=== PATIENT | male | born 1950 | race Caucasian/White ===

== ENCOUNTER → 2020-08-05 | Outpatient (CLI) | payer MEDICARE ==
[~2020-08-05] MED LIST: CARV6.25 PO; SIMV40TA59 PO; TYL3 PO; WARF7.5T49 PO
== END | disposition home or self-care (01) ==
LOC: SHCH 08:15
PROVIDERS: ATTEND Internal Medicine Cardiovascular Disease
DX: I25.119 Atherosclerotic heart disease of native coronary artery with unspecified angina pectoris (principal); R06.00 Dyspnea, unspecified
CPT/HCPCS: 93306; 93356

== ENCOUNTER → 2020-08-06 | Outpatient (CLI) | payer MEDICARE ==
[~2020-08-06] MED LIST changes: +REGADENOSON 0.4 MG/5 ML PF SYG IVP SCH
== END | disposition home or self-care (01) ==
LOC: SHCH 07:58
PROVIDERS: ATTEND Internal Medicine Cardiovascular Disease
DX: I25.10 Atherosclerotic heart disease of native coronary artery without angina pectoris (principal); I25.5 Ischemic cardiomyopathy
CPT/HCPCS: 78452; 93017; 96374; A9500 ×2; J2785

== ENCOUNTER 2020-09-10 05:48 | Day surgery (SDC) | payer MEDICARE ==
[2020-09-08 09:01] LABS: EOSINOPHILS % (AUTO) 3.5 % (0.0-8.0); HEMATOCRIT 46.6 % (42-54); LYMPHOCYTES % (AUTO) 15.6 % (21.0-51.0); MEAN CORPUSCULAR HEMOGLOBIN 28.4 pg (27.0-33.0); MEAN CORPUSCULAR HGB CONC 32.6 g/dL (32.0-36.0); MEAN CORPUSCULAR VOLUME 87.1 fL (79-99); MONOCYTES % (AUTO) 10.7 % (3.0-13.0); NEUTROPHILS % (AUTO) 68.9 % (40.0-77.0); PLATELET COUNT (AUTO) 206 K/uL (130-400); RED BLOOD CELL COUNT(AUTO) 5.35 MIL/uL (4.50-6.20); RED CELL DISTRIBUTION WIDTH 18.2 % (11.0-15.5); WHITE BLOOD COUNT (AUTO) 7.8 K/uL (4.8-10.8)
[2020-09-08 09:18] LABS: POTASSIUM 4.6 mmol/L (3.5-5.1)
[2020-09-08 09:19] LABS: APPEARANCE,URINE Clear (CLEAR); BILIRUBIN,URINE Negative (NEGATIVE); GLUCOSE, URINE (UA) Negative (NEGATIVE); KETONES,URINE Negative (NEGATIVE); LEUKOCYTE ESTERASE ,URINE Negative (NEGATIVE); NITRATE,URINE Negative (NEGATIVE); OCCULT BLOOD,URINE Negative (NEGATIVE); PROTEIN,URINE Negative (NEGATIVE)
[2020-09-08 09:20] LABS: INR 1.19 (0.85-1.15); PARTIAL THROMBOPLASTIN TIME 29.1 SEC (26.3-35.5); PROTHROMBIN TIME 12.8 SEC (9.6-11.6)
[2020-09-08 09:20] LABS: COLOR,URINE YELLOW (YELLOW)
[2020-09-08 09:26] LABS: CREATININE 1.3 mg/dL (0.5-1.5)
[2020-09-08 09:42] LABS: PLATELET MORPHOLOGY GIANT PLTS PRESENT
[2020-09-09 09:32] VITALS: BP 136/76
--- NOTE | 2020-09-09 10:22 | NUR ---
LABS REPORTED BUN/CRE/PT/INR TO ABDULKADIR MARCUS. ORDERS RECEIVED TO UNFUSE NS AT 50ML/HR ON ARRIVAL DAY OF SURGERY.
[~2020-09-10] VITALS: Ht 167.6 cm; Wt 103.8 kg
[2020-09-10] VITALS (20 sets, daily range): BP systolic 108–133; BP diastolic 48–71
[~2020-09-10 05:48] MED LIST changes: +ENOX100D4 SQ; -REGADENOSON 0.4 MG/5 ML PF SYG IVP SCH; -TYL3 PO; +WARF-57 PO; -WARF7.5T49 PO
[2020-09-10] MEDS ORDERED: SODIUM CHLORIDE 0.9% 1000ML 1,000 ML IV SCH ×2 (06:00→08:15)
[2020-09-10] MEDS ORDERED: LIDOCAINE HCL 2% 20ML ONE (07:07)
[2020-09-10] MEDS ORDERED: IOHEXOL 350 MG/ML 100ML INFUS..BTL IV ONE (07:07)
[2020-09-10] MEDS ORDERED: HEPARIN SODIUM 1000UNIT/ML 10ML VIAL ONE (07:07)
[2020-09-10] MEDS ORDERED: IOHEXOL-350 50ML VIAL IV ONE ×2 (07:07→07:41)
--- NOTE | 2020-09-10 08:56 | NUR ---
PT STABLE- HAS 6FR SHEATH TO RT FEMORAL ARTERY IN PLACE THAT IS PENDING REMOVAL MANUALLY. NO CHEST PAIN OR SOB. DR GONZALEZ SPOKE TO PT AND POST PROCEDURE. WILL NEED LIFE VEST PRIOR TO DC HOME. PHILOSOPHY FACULTY BISHNU FIELDS AND IS CURRENTLY WORKING ON PROCESS.
[2020-09-10] MEDS ORDERED: ATROPINE SULFATE 0.1 MG/ML 10 ML SYG IVP ONE (09:00)
--- NOTE | 2020-09-10 13:26 | NUR ---
PRINTED AND VERBAL DISCHARGE INSTRUCTIONS GIVEN TO PT AND HIS . BOTH VERBALIZE UNDERSTANDING. PT ENDORSED TO MAGDALENO KELLER
--- NOTE | 2020-09-10 13:57 | NUR ---
SPOKE TO DIRECTOR OF [employer]UM[employer] RELATIONS BISHNU KELLER- LIFE VEST STILL PENDING INSURANCE APPROVAL. I HAD CALLED SELWYN [place] AND LET HIM KNOW ABOUT PENDING AUTHORIZATION- HE GAVE ORDER TO DC HOME TODAY IF UNABLE TO OBTAIN LIFE VEST AND HE WOULD FOLLOW UP WITH HIM AT THE OFFICE NEXT WEEK. THERE IS A POSSIBILITY THAT PT COULD RECEIVE LIFE VEST AT HOME PER DIRECTOR OF ALUMNI RELATIONS
--- NOTE | 2020-09-10 17:18 | NUR ---
DC PLAN VISITED WITH PATIENT. PATIENT LIVES WITH SPOUSE. RECEIVED ORDER FOR [facility] VEST. AMRIT SIGNED BY SPOUSE. PACKET SENT TO [facility] LET WILLIAM MERCADO KNOW. DELAY BY REQUEST FOR A MORE INFORMATION BY INSURANCE. WAS NOTIFIED BY THE DAY PATIENT NURSE THAT PATIENT WILL BE DISCHARGED HOME. LET JEANINE KNOW. SAID PATIENT HAS BEEN APPROVED FOR VEST WILL DELIVER VEST TO PATIENT HOME ONCE FIND A FITTER. CONFIRMED ADDRESS AND SPOUSE INFO. SAID SHOULD BE DELIVERED THIS EVENING. LET DAY PATIENT KNOW. SAID OKAY PATIENT ALREADY DISCHARGING HOME. Addendum: 09/10/20 at 1722 by BISHNU VILLANUEVA RN CM Amended: Links added.
== END 2020-09-10 15:45 | disposition home or self-care (01) ==
LOC: DAH 05:48
PROVIDERS: ATTEND Internal Medicine Cardiovascular Disease
DX: I25.119 Atherosclerotic heart disease of native coronary artery with unspecified angina pectoris (principal); Z20.828 Contact with and (suspected) exposure to other viral communicable diseases; I50.43 Acute on chronic combined systolic (congestive) and diastolic (congestive) heart failure; I25.5 Ischemic cardiomyopathy; I25.2 Old myocardial infarction; Z88.0 Allergy status to penicillin; Z79.899 Other long term (current) drug therapy; Z98.890 Other specified postprocedural states; Z79.01 Long term (current) use of anticoagulants; Z95.5 Presence of coronary angioplasty implant and graft
CPT/HCPCS: 36415; 71045; 80048; 81003; 85025; 85610; 85730; 93005; 93458; A4215; A4216; A4221; A4222; A4223 ×3; A4606; A4663; C1894; J1644 ×2; J3490; J7030; Q9965; Q9967 ×3; 96360; 96361; J0461

== ENCOUNTER 2020-12-01 07:48 | Day surgery (SDC) | payer MEDICARE ==
[2020-11-30 09:53] LABS: BASOPHILS % (AUTO) 0.7 % (0.0-5.0); EOSINOPHILS % (AUTO) 2.7 % (0.0-8.0); HEMATOCRIT 43.3 % (42-54); LYMPHOCYTES % (AUTO) 15.5 % (21.0-51.0); MEAN CORPUSCULAR HEMOGLOBIN 31.4 pg (27.0-33.0); MEAN CORPUSCULAR HGB CONC 34.2 g/dL (32.0-36.0); MEAN CORPUSCULAR VOLUME 91.9 fL (79-99); MONOCYTES % (AUTO) 10.4 % (3.0-13.0); NEUTROPHILS % (AUTO) 70.3 % (40.0-77.0); PLATELET COUNT (AUTO) 182 K/uL (130-400); RED BLOOD CELL COUNT(AUTO) 4.71 MIL/uL (4.50-6.20); RED CELL DISTRIBUTION WIDTH 13.9 % (11.0-15.5); WHITE BLOOD COUNT (AUTO) 8.4 K/uL (4.8-10.8)
[2020-11-30 10:01] LABS: CREATININE 1.2 mg/dL (0.5-1.5); POTASSIUM 4.8 mmol/L (3.5-5.1)
[2020-11-30 10:04] LABS: INR 1.89 (0.85-1.15); PROTHROMBIN TIME 19.4 SEC (9.6-11.6)
[2020-11-30 10:05] LABS: PARTIAL THROMBOPLASTIN TIME 33.6 SEC (26.3-35.5)
[2020-11-30 14:35] VITALS: BP 115/71
[2020-12-01] VITALS (12 sets, daily range): BP systolic 102–125; BP diastolic 55–71
[~2020-12-01] VITALS: Ht 170.2 cm; Wt 105.0 kg
[~2020-12-01 07:48] MED LIST changes: -ENOX100D4 SQ; +FURO20TA4 PO; +LISI2.5T2 PO
[2020-12-01] MEDS ORDERED: SODIUM CHLORIDE 0.9% 1000ML 1,000 ML IV ONE (08:00)
[2020-12-01] MEDS ORDERED: IODIXANOL 320 MG/ML 100 ML VIAL ONE (10:24)
[2020-12-01] MEDS ORDERED: MEPERIDINE-PF 50 MG/ML SYG ONE (10:24)
[2020-12-01] MEDS ORDERED: CEFAZOLIN SODIUM 1 GM VIAL ONE (10:24)
[2020-12-01] MEDS ORDERED: LIDOCAINE HCL 1% MDV 50ML VIAL ONE (10:24)
[2020-12-01] MEDS ORDERED: MIDAZOLAM HCL 1 MG/ML 2ML VIAL ONE ×3 (10:24→12:04)
[2020-12-01] MEDS ORDERED: BUPIVACAINE/PF 0.25% 30ML VIAL IJ ONE (10:24)
[2020-12-01] MEDS ORDERED: VANCOMYCIN 1GM+NS 250ML 500 ML IV ONE (10:25)
[2020-12-01] MEDS ORDERED: MEPERIDINE-PF 25 MG/ML SYG ONE ×2 (11:29→12:04)
[2020-12-01] MEDS ORDERED: ACETAMINOPHEN-CODEINE 300/30MG TAB PO PRN (13:15)
[2020-12-01] MEDS ORDERED: TRAM50TA4 PO (13:16)
== END 2020-12-01 17:45 | disposition home or self-care (01) ==
LOC: DAH 07:48
PROVIDERS: ATTEND Internal Medicine Cardiovascular Disease
DX: I25.5 Ischemic cardiomyopathy (principal); I50.42 Chronic combined systolic (congestive) and diastolic (congestive) heart failure; I25.10 Atherosclerotic heart disease of native coronary artery without angina pectoris; I45.10 Unspecified right bundle-branch block; Z88.0 Allergy status to penicillin; Z95.5 Presence of coronary angioplasty implant and graft; Z79.899 Other long term (current) drug therapy; Z80.9 Family history of malignant neoplasm, unspecified; Z98.890 Other specified postprocedural states; Z79.01 Long term (current) use of anticoagulants
CPT/HCPCS: 33225; 33249; 36415; 71045; 80048; 85025; 85610; 85730; A4215; A4216; A4221; A4222; A4223 ×3; A4606; A4663; C1769; C1882; C1895; C1896; C1900; J2175 ×3; J2250 ×3; J3370; J3490 ×2; J7030; Q9967; 99156; 99157; J0690

== ENCOUNTER 2023-08-29 19:25 | Emergency (ER) | payer MEDICARE ==
[~2023-08-29] VITALS: Ht 167.6 cm; Wt 94.3 kg
[~2023-08-29 19:25] MED LIST changes: +LISI2.5T13 PO; -LISI2.5T2 PO; +TRAM50TA4 PO
[2023-08-29] MEDS ORDERED: HYDROMORPHONE 0.5 MG SYG (0.5MG/0.5ML) IVP ONE (20:00)
[2023-08-29 20:44] LABS: BASOPHILS # (AUTO) 0.03 K/uL (0.00-0.20); BASOPHILS % (AUTO) 0.3 % (0.0-5.0); EOSINOPHILS # (AUTO) 0.27 K/uL (0.00-0.70); EOSINOPHILS % (AUTO) 2.4 % (0.0-8.0); HEMATOCRIT 44.2 % (42-54); IMMATURE GRANULOCYTE ABSOLUTE 0.06 K/uL (0-1); LYMPHOCYTES # (AUTO) 1.2 K/uL (1.0-4.8); LYMPHOCYTES % (AUTO) 10.4 % (21.0-51.0); MEAN CORPUSCULAR HGB CONC 35.3 g/dL (32.0-36.0); MEAN CORPUSCULAR VOLUME 87.9 fL (79-99); MONOCYTES # (AUTO) 0.8 K/uL (0.1-1.0); MONOCYTES % (AUTO) 6.6 % (3.0-13.0); NEUTROPHILS % (AUTO) 79.8 % (40.0-77.0); PLATELET COUNT (AUTO) 150 K/uL (130-400); RED BLOOD CELL COUNT(AUTO) 5.03 MIL/uL (4.50-6.20); RED CELL DISTRIBUTION WIDTH 13.5 % (11.0-15.5); WHITE BLOOD COUNT (AUTO) 11.3 K/uL (4.8-10.8)
[2023-08-29 20:57] LABS: POTASSIUM 4.2 mmol/L (3.5-5.1)
[2023-08-29 20:59] LABS: INR 1.85 (0.85-1.15); PROTHROMBIN TIME 20.6 SEC (9.6-11.6)
[2023-08-29 21:00] LABS: PARTIAL THROMBOPLASTIN TIME 34.4 SEC (26.3-35.5)
[2023-08-29 21:01] LABS: ALBUMIN 3.2 g/dL (3.5-5.0); BILIRUBIN,TOTAL 0.8 mg/dL (0.2-1.0); TOTAL PROTEIN, SERUM 7.5 g/dL (6.0-8.3)
[2023-08-29] MEDS ORDERED: IOHEXOL 350 MG/ML 100ML INFUS..BTL IV ONE (21:17)
[2023-08-29 21:21] LABS: B-TYPE NATRIURETIC PEPTIDE 249 pg/mL (0-100)
[2023-08-29 22:03] LABS: APPEARANCE,URINE CLEAR (CLEAR); BILIRUBIN,URINE NEGATIVE (NEGATIVE); COLOR,URINE YELLOW (YELLOW); GLUCOSE, URINE (UA) NEGATIVE (NEGATIVE); KETONES,URINE NEGATIVE (NEGATIVE); LEUKOCYTE ESTERASE ,URINE NEGATIVE Leu/uL (NEGATIVE); NITRATE,URINE NEGATIVE (NEGATIVE); OCCULT BLOOD,URINE NEGATIVE (NEGATIVE); PH,URINE 5.5 (5.0-8.0); PROTEIN,URINE NEGATIVE (NEGATIVE); UROBILINOGEN,URINE 3 mg/dL (0.2-1.0)
[2023-08-29 22:06] LABS: ADD UA MICROSCOPIC YES; MUCUS,URINE RARE LPF (None Seen); RBC,URINE 0-1 /HPF (0-1); WBC,URINE 0-1 /HPF (0-1)
[2023-08-29] MEDS ORDERED: DOCU-116 PO (22:57)
[2023-08-29] MEDS ORDERED: PEG 3350/NA SULF,BICARB,CL/KCL 4000 ML SOLN PO ONE (23:00)
[2023-08-29 23:34] VITALS: BP 149/78; PULSE 75; RESP 18; O2SAT 98
[2023-08-31] MEDS ORDERED: LOSA50TA64 PO (18:06)
[2023-08-31] MEDS ORDERED: ISOS20TA85 PO (18:06)
[2023-08-31] MEDS ORDERED: LORA10TA7 PO (18:07)
== END 2023-08-29 23:35 | disposition home or self-care (01) ==
LOC: EDH 19:25
DX: K40.90 Unilateral inguinal hernia, without obstruction or gangrene, not specified as recurrent (principal); K59.00 Constipation, unspecified; J18.9 Pneumonia, unspecified organism; E78.00 Pure hypercholesterolemia, unspecified; Z79.899 Other long term (current) drug therapy; Z98.890 Other specified postprocedural states; Z88.0 Allergy status to penicillin
CPT/HCPCS: 36415; 71045; 74177; 80053; 81001; 83690; 83880; 84484; 85025; 85610; 85730; 93005; 96374; J1170; Q9967

== ENCOUNTER 2023-09-12 12:31 | Emergency (ER) | payer MEDICARE ==
[~2023-09-12] VITALS: Ht 167.6 cm; Wt 91.2 kg
[~2023-09-12 12:31] MED LIST changes: +DOCU-116 PO; +ISOS20TA85 PO; +LORA10TA7 PO; +LOSA50TA64 PO; -TRAM50TA4 PO
[2023-09-12 13:36] LABS: BASOPHILS # (AUTO) 0.04 K/uL (0.00-0.20); BASOPHILS % (AUTO) 0.3 % (0.0-5.0); EOSINOPHILS # (AUTO) 0.34 K/uL (0.00-0.70); EOSINOPHILS % (AUTO) 2.7 % (0.0-8.0); HEMATOCRIT 39.3 % (42-54); IMMATURE GRANULOCYTE ABSOLUTE 0.17 K/uL (0-1); LYMPHOCYTES # (AUTO) 0.9 K/uL (1.0-4.8); LYMPHOCYTES % (AUTO) 7.2 % (21.0-51.0); MEAN CORPUSCULAR HGB CONC 35.9 g/dL (32.0-36.0); MEAN CORPUSCULAR VOLUME 86.4 fL (79-99); MONOCYTES % (AUTO) 7.6 % (3.0-13.0); NEUTROPHILS # (AUTO) 10.3 K/uL (1.8-7.7); NEUTROPHILS % (AUTO) 80.9 % (40.0-77.0); PLATELET COUNT (AUTO) 205 K/uL (130-400); RED BLOOD CELL COUNT(AUTO) 4.55 MIL/uL (4.50-6.20); RED CELL DISTRIBUTION WIDTH 13.8 % (11.0-15.5); WHITE BLOOD COUNT (AUTO) 12.7 K/uL (4.8-10.8)
[2023-09-12 13:41] LABS: CREATININE 1.1 mg/dL (0.5-1.5); POTASSIUM 5.1 mmol/L (3.5-5.1)
[2023-09-12 13:42] LABS: ADD UA MICROSCOPIC YES; APPEARANCE,URINE CLEAR (CLEAR); BILIRUBIN,URINE NEGATIVE (NEGATIVE); COLOR,URINE YELLOW (YELLOW); GLUCOSE, URINE (UA) NEGATIVE (NEGATIVE); KETONES,URINE NEGATIVE (NEGATIVE); LEUKOCYTE ESTERASE ,URINE NEGATIVE Leu/uL (NEGATIVE); NITRATE,URINE NEGATIVE (NEGATIVE); OCCULT BLOOD,URINE NEGATIVE (NEGATIVE); PH,URINE 5.5 (5.0-8.0); PROTEIN,URINE 20 mg/dL (NEGATIVE); UROBILINOGEN,URINE 6 mg/dL (0.2-1.0)
[2023-09-12 13:43] LABS: BACTERIA,URINE RARE /HPF (None Seen); MUCUS,URINE FEW LPF (None Seen); RBC,URINE 0-1 /HPF (0-1); SQUAMOUS EPITHELIAL CELL,UR RARE /HPF (0-2)
[2023-09-12 13:45] LABS: ALBUMIN 2.5 g/dL (3.5-5.0); BILIRUBIN,TOTAL 1.1 mg/dL (0.2-1.0); TOTAL PROTEIN, SERUM 7.1 g/dL (6.0-8.3)
[2023-09-12] MEDS ORDERED: ONDANSETRON 4MG INJ IVP ONE (15:00)
[2023-09-12] MEDS ORDERED: MORPHINE 4 MG SYG IV ONE (15:00)
[2023-09-12 17:45] VITALS: BP 125/68; PULSE 78; RESP 17; O2SAT 98
== END 2023-09-12 17:46 | disposition home or self-care (01) ==
LOC: EDH 12:31
DX: R10.10 Upper abdominal pain, unspecified (principal); E78.00 Pure hypercholesterolemia, unspecified; Z79.01 Long term (current) use of anticoagulants; Z79.899 Other long term (current) drug therapy; Z88.0 Allergy status to penicillin; Z95.5 Presence of coronary angioplasty implant and graft; Z95.810 Presence of automatic (implantable) cardiac defibrillator
CPT/HCPCS: 99285; 74176; 96374; 71045; 96375; 84484; 80053; 83690; 85025; 81001; 36415; 93005; J2405; J2270

== ENCOUNTER → 2024-11-29 | Outpatient (CLI) | payer MEDICARE ==
[~2024-11-29] MED LIST changes: +ISOS-58 PO; -ISOS20TA85 PO
--- NOTE | 2024-12-03 12:29 | HMCSR ---
APPROVED REPORT Bilateral Lower Extremity Venous Study for DVT., Venous Competence. Indications i87.1, i87.2 Vein Imaging CFV (R): Normal flow, augmentation and compression. No evidence of DVT. 12.3mm 1272ms of reflux. SFJ (R): Normal flow, augmentation and compression. No evidence of DVT. FEM (R): Normal flow, augmentation and compression. No evidence of DVT. POP (R): Normal flow, augmentation and compression. No evidence of DVT. DFV (R): Normal flow, augmentation and compression. No evidence of DVT. PTV (R): Normal flow, augmentation and compression. No evidence of DVT. Peroneals (R): Normal flow, augmentation and compression. No evidence of DVT. CFV (L): Normal flow, augmentation and compression. No evidence of DVT. 12.7mm 1017ms of reflux. SFJ (L): Normal flow, augmentation and compression. No evidence of DVT. FEM (L): Normal flow, augmentation and compression. No evidence of DVT. POP (L): Normal flow, augmentation and compression. No evidence of DVT. DFV (L): Normal flow, augmentation and compression. No evidence of DVT. PTV (L): Normal flow, augmentation and compression. No evidence of DVT. Peroneals (L): Normal flow, augmentation and compression. No evidence of DVT. Technologist Impression Deep veins of the bilateral lower extremities appear patent and compressible without thrombus. Deep venous reflux noted in the LCFV. Superficial venous insufficiency in the RGSV at junction and LGSV calf. RGSV junction 7.4mm 956ms thigh 3.3mm 0.0ms knee 3.8mm 0.0ms calf 4.7mm 0.0ms RSSV prox 1.9mm 0.0ms mid 3.0mm 0.0ms LGSV junction 8.1mm 0.0ms thigh 4.4mm 0.0ms knee 3.7mm 0.0ms calf 3.1mm 1478ms LSSV prox 2.0mm 339ms mid 2.2mm 0.0ms
== END | disposition home or self-care (01) ==
LOC: SHCH 14:42
PROVIDERS: ATTEND Internal Medicine Cardiovascular Disease
DX: I87.2 Venous insufficiency (chronic) (peripheral) (principal); I87.1 Compression of vein
CPT/HCPCS: 93970